=== PATIENT | male | born 1970 | race Caucasian/White ===

== ENCOUNTER 2018-08-09 13:05 | Emergency (ER) | payer OTHER ==
[2018-08-09] MEDS ORDERED: METHYLPREDNISOLONE PF 125MG/VIAL IM ONE (13:23)
--- NOTE | 2018-08-09 13:35 | Emergency Department Record ---
History of Present Illness - General Chief complaint: Facial Swelling Stated complaint: SWOLLEN LIPS Time Seen by Provider: 08/09/18 13:08 Source: Patient Mode of Arrival: Ambulatory Limitations: No limitations - History of Present Illness Initial Comments: The patient is here due to facial swelling since last evening. It first started over his bottom lip, then travelled to his cheeks. Those areas resolved and then this AM his upper lip became affected. The patient denies any tongue or throat swelling, voice changes, ST, cough, SOB, or CP. He denies any new medicines and has been on Lisinopril for about 3 years for HTN. MD Complaint: Facial swelling Onset/Timin -: Hour(s) Exposure: Unknown Treatment Prior to Arrival: Benadryl, Other - Related Data Home Medications Medication Instructions Recorded Confirmed Last Taken Baclofen 15 mg PO DAILY 08/09/18 08/09/18 08/08/18 Previous Rx's Medication Instructions Recorded Prednisone [Prednisone 20Mg] 40 mg PO DAILY #8 tab 08/09/18 Allergies Allergy/AdvReac Type Severity Reaction Status Date / Time No Known Drug Allergies Allergy Verified 08/09/18 13:17 Travel Screening - Travel/Exposure Within Last 30 Days Have you traveled within the last 30 days?: No - Travel/Exposure Within Last Year Have you traveled outside the [place] in the last year?: No - Additonal Travel Details Have you been exposed to anyone with a communicable illness?: No - Travel Symptoms Symptom Screening: None Review of Systems Constitutional: Denies: Chills, Fever Eyes: Denies: Eye discharge ENT: Denies: Congestion Respiratory: Denies: Cough, Dyspnea Cardiovascular: Denies: Arrhythmia Past Medical History - SOCIAL HISTORY Smoking Status: Current every day smoker Alcohol Use: Occasional Drug Use: Occasional Drug Use Detail:: Marijuana - RESPIRATORY Hx Respiratory Disorders: No - CARDIOVASCULAR Hx Cardio Disorders: Yes Hx Hypertension: Yes - NEURO Hx Neuro Disorders: No - GI Hx GI Disorders: No - Hx Genitourinary Disorders: No - ENDOCRINE Hx Endocrine Disorders: Yes Comment:: hypoglycemia - MUSCULOSKELETAL Hx Musculoskeletal Disorders: Yes Hx Back Injury: Yes - PSYCH Hx Psych Problems: No - HEMATOLOGY/ONCOLOGY Hx Hematology/Oncology Disorders: No Family Medical History Any Significant Family History?: No Physical Exam - General General Appearance: Alert, Oriented x3, Cooperative, No acute distress - Head Head exam: Atraumatic, Normocephalic, Normal inspection - Eye Eye exam: Normal appearance, PERRL, EOMI - ENT ENT exam: Normal orophraynx. negative: Normal exam Mouth exam: Tongue normal. negative: Normal external inspection (The upper lip is significantly edematous but nontender.), Drooling, Muffled voice, Tongue elevation Throat exam: Normal inspection. negative: Tonsillar erythema, Tonsillomegaly - Neck Neck exam: Normal inspection, Full ROM. negative: Lymphadenopathy, Meningismus , Tenderness - Respiratory Respiratory exam: Normal lung sounds bilaterally. negative: Respiratory distress - Cardiovascular Cardiovascular Exam: Regular rate, Normal rhythm, Normal heart sounds - Extremities Extremities exam: Normal inspection, Full ROM, Normal capillary refill. negative: Tenderness - Neurological Neurological exam: Alert. negative: Motor sensory deficit Course Vital Signs 08/09/18 13:07 Temperature 98.4 F Pulse Rate 107 H Respiratory 18 Rate Blood Pressure 136/107 Pulse Ox 100 - Reevaluation(s) Reevaluation #1: The patient is doing well. His upper lip swelling has not changed and he has no trouble swallowing or breathing. I did explain to him the need to stop the Lisinopril and to monitor his BP twice a day and to see his PCP next week for further evaluation. He is to return to the ER for any worsening symptoms. 08/09/18 14:16 Disposition Disposition: Discharge Clinical Impression: Angioedema of lips Qualifiers: Encounter type: initial encounter Qualified Code(s): T78.3XXA - Angioneurotic edema, initial encounter Disposition: Home, Self-Care Condition: (2) Stable Instructions: Angioedema (ED) Additional Instructions: Please stop your Lisinopril and continue your home Benadryl and continue the Prednisone tomorrow. Please see your doctor next week to have your BP rechecked. Return to the ER for any worsening symptoms, pain, tongue swelling, or ANY trouble breathing or swallowing. Prescriptions: Prednisone [Prednisone 20Mg] 40 mg PO DAILY #8 tab Forms: Patient Portal Access Time of Disposition: 14:15 Quality - Quality Measures Quality Measures: N/A - Blood Pressure Screening View Details: Yes Does Patient Have Any of the Following: Active Dx of HTN Blood Pressure Classification: Hypertensive Reading Systolic Measurement: 136 Diastolic Measurement: 107 Screening for High Blood Pressure: Patient Exclusion, Hx of HTN [[id number]]
== END 2018-08-09 14:20 | disposition home or self-care (01) ==
LOC: ER 13:05
DX: T78.3XXA Angioneurotic edema, initial encounter (principal); I10 Essential (primary) hypertension; F17.210 Nicotine dependence, cigarettes, uncomplicated
CPT/HCPCS: 96372; 99282; 99283; J2930